=== PATIENT | female | born 1995 | race Caucasian/White ===

== ENCOUNTER 2020-10-16 20:56 | Observation (INO) | payer SELFPAY ==
--- NOTE | 2020-10-16 21:20 | PM.HP ---
Providers/Chief Complaint Admitting Physician: Elías Lainez MD Chief Complaint: Acute appendicitis History of Present Illness Paty Rivero is a 24 year old female who presented to [facility] in [place] with abdominal pain. She says the pain started about 3 days ago in the middle of the night. She has had pain ever since. This has been associated with some nausea and an episode of vomiting yesterday. There is no evidence of hematemesis. The patient also had some diarrhea yesterday but hasn't had any bowel movements today. She denies fevers and chills. A CAT scan done in [place] reportedly revealed changes consistent with acute appendicitis without evidence of rupture. The patient was transferred to [place] for further management. Review of Systems General: Reports: 10 or more systems reviewed and unremarkable except in HPI and below Const: Denies: fever(s) or chills GI: Reports: abdominal pain, nausea, vomiting, diarrhea and change in bowel habits Medications/Allergies Allergies Allergy/AdvReac Type Severity Reaction Status Date / Time No Known Allergies Allergy Unverified 10/16/20 21:19 PFSH Acute PFSH: Medical History (Updated 10/16/20 @ 21:21 by Elías Lainez MD) Depression Surgical History (Updated 10/16/20 @ 21:19 by Elías Lainez MD) S/P tube myringotomy Social History (Updated 10/16/20 @ 21:59 by Elías Lainez MD) Smoking and tobacco status: current every day smoker cigarettes Packs smoked per day: 0.75 Years cigarettes smoked: 10 Alcohol intake: current Alcohol use comment: Infrequently Physical Exam Narrative: EXAM NARRATIVE: The patient was encountered in the preoperative area. She doesn't appear to be in any acute distress. The pupils are equal. No neck masses are palpated. The chest is clear. The heart is regular. The abdomen is moderately to severely obese. Bowel sounds are present but may be somewhat hypoactive. The patient does have tenderness on the right side of her abdomen which is fairly impressive right above McBurney's point and at McBurney's point. Rovsing's sign is negative. No obvious masses are palpated. The extremities reveal no edema. Neurologically the patient appears to be grossly intact. Data Other Labs: Laboratory studies from [place]: White blood cell count 9.1, hemoglobin 14.6, platelets 367,000. Electrolytes are all grossly within normal limits. Glucose is elevated at 191. CT Abd/Pel: Radiologist's impression: CT abdomen/pelvis 10/16/2020 impression: CT findings consistent with acute separative appendicitis without rupture. A&P Assessment and plan (1) Acute appendicitis: The patient had a PACSgear disc sent with her but unfortunately, I cannot find a computer that will open the files (permissions seem to be restricted) and so I cannot look at her images. I told her I don't have any reason to doubt what the radiologist is seeing, but it is somewhat unusual that she has a normal white blood cell count with what appears to be a normal neutrophil differential (monocytes and eosinophils are elevated). I discussed appendicitis with the patient. Both medical and surgical methods of management were discussed. Surgical risks including bleeding, infection, internal organ injury, etc. were all gone over. The patient seems understand and is agreeable to proceeding with an appendectomy tonight. The patient last had some almonds at 7 AM this morning. She has been drinking some fluids up until around 4 PM this afternoon. We will make arrangements for a laparoscopic or possibly open appendectomy tonight. Status: Acute Attestations Medical Necessity Statement*: Based on my medical assessment, presenting symptoms and consideration of the scope of surgical therapy, I expect this patient will require treatment in the hospital for a period of time spanning less than 2 midnights, and is therefore being placed in observation status. 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
--- NOTE | 2020-10-16 21:36 | ANES.PREANE2 ---
Pre-Anesthetic Assessment Pre-Anesthetic Assessment: Preop Diagnosis: Appendicitis Proposed Procedure: Operation Date: 10/16/20 21:45 Proposed Procedures p Laparoscopic Appendectomy(Not Applicable) - Elías Lainez MD Familial anesthetic complications: None Was Beta Roland taken within 24 hours: N/A Was Clonidine taken within 24 hours: N/A Last intake: Almonds at 0700 this morning Social: Social History: Tobacco and No alcohol Exam: Pre-Anes Outpt Exam: alert, oriented x 3, clear to auscultation bilaterally and regular rate & rhythm Airway: Cervical ROM: WNL MP: 3 Dentition: Chipped and Other (missing) Additional comments: Poor dentition Metabolic: Metabolic: Morbid obesity Anesthetic Plan: ASA status: 2E Anesthesia: General Risk of > 500 ml blood loss (7ml/kg in children): No PFSH Anesthesia PFSH: Medical History (Updated 10/16/20 @ 21:21 by Elías Laniez MD) Depression Surgical History (Updated 10/16/20 @ 21:19 by Elías Lainez MD) S/P tube myringotomy Data Anesthesia Cardiac Studies: No Data to Display
[2020-10-16] MEDS: metroNIDAZOLE IV 500 MG/100 ML PREMIX 100 MG IV (22:05)
--- NOTE | 2020-10-16 22:59 | P.OP_ITS ---
Operative Report Date of procedure: October 16, 2020 Pre-op Diagnosis: Acute appendicitis. Post-op diagnosis: same Procedure Done: Laparoscopic appendectomy. Specimens removed/disposition: Appendix. Surgeon: Elías Lainez Anesthesia: General Estimated blood loss (mL): 5 Complications: None. Condition: stable Disposition: PACU Procedure: The patient was brought to the Operating Room and was placed in a supine position on the operating room table. General endotracheal anesthesia was induced. The abdomen was prepped and draped in a sterile fashion. A small vertical incision was carried out in the superior aspect of the umbilicus. Blunt dissection was carried out down to the fascia, which was grasped with a Holden clamp. A stay suture of 0 Vicryl was placed on either side of the midline and the midline fascia was incised. The underlying peritoneum was opened bluntly and the Natalie port was placed directly into the peritoneal cavity and was held in place with the inflatable balloon. The peritoneal cavity was insufflated with carbon dioxide. The laparoscope was used to inspect the peritoneal cavity. No gross abnormalities were initially noted. The patient had a considerable amount of intra-abdominal fat which precluded easy visualization of all of the organs. Two 5-millimeter ports were placed in the left lower quadrant under direct vision. The patient was tilted in a Trendelenburg position and slightly to the left side. A laparoscopic Abdias was used to elevate the cecum and the appendix was identified at its base. The appendix traveled laterally and posteriorly and was in a retrocecal location. The peritoneum laterally was freed up and the appendix was exposed. The appendix was freed using blunt dissection with some cautery and was then elevated. The mesoappendix was divided using cautery to maintain hemostasis at the base of the appendix. The base of the appendix appeared healthy and was divided using an endoscopic stapler. The appendix was removed from the peritoneal cavity after being placed in a laparoscopic bag. The right lower quadrant and pelvis were irrigated. The staple line on the cecum was identified and appeared to be in good condition. The Natalie port was removed from the umbilical site and the stay sutures of Vicryl were tied to each other at the umbilicus, closing the fascial defect so that it was airtight. A final ro und of irrigation was carried out in the right lower quadrant and the pelvis. No ongoing problems were seen. The remaining ports were removed from the abdominal wall as the pneumoperitoneum was evacuated. All skin incisions were closed using inverted interrupted sutures of 4-0 Vicryl. Benzoin and Steri-Strips were placed over the incisions and Band- Aids followed. The patient was taken to the Recovery Room in stable condition postoperatively.
[2020-10-16 23:16] VITALS: BP 158/91; PULSE 85; RESP 20; TEMP 36.6; O2SAT 90
[2020-10-16 23:20] VITALS: BP 156/90; PULSE 77; RESP 20; O2SAT 92
[2020-10-16 23:25] VITALS: BP 110/75; PULSE 73; RESP 20; O2SAT 90
[2020-10-16 23:30] VITALS: BP 135/75; PULSE 68; RESP 20; O2SAT 93
[2020-10-16] MEDS: ipratropium-albuterol 3 mL Neb INHALATION (23:34)
[2020-10-16 23:35] VITALS: BP 110/75; PULSE 63; RESP 18; TEMP 36.4; O2SAT 94
[2020-10-16] MEDS: ondansetron 2 mg/ML SDV 2 mL 4 MG IVP (23:37)
[2020-10-16 23:40] VITALS: BP 135/75; PULSE 63; RESP 18; TEMP 35.9; O2SAT 95
--- NOTE | 2020-10-16 23:40 | ANE.PACU2 ---
Inpatient post-anesthesia follow up: Airway intact: Yes Vital signs: Temperature 97.8 F Pulse Rate 74 Respiratory Rate 18 Blood Pressure 105/65 Pulse Oximetry 93 Oxygen Delivery Me thod Room Air Oxygen Flow Rate 8 Fraction of Inspir ed Oxygen Hydration adequate: Yes Nausea and vomiting: No Pain level: 2 Mental status: Baseline
[2020-10-17] VITALS (14 sets, daily range): BP systolic 104–115; BP diastolic 65–79; PULSE 63–88; RESP 16–20; TEMP 36.5–36.8; O2SAT 93–96; BMI 46.4
--- NOTE | 2020-10-17 00:04 | SUR.PHASEI ---
2344 PT AWAKE ALERT ABD SOFT PT REPORT TO FLOOR, PT TO FLOOR PER BED WITH PT BELONGINGS PHONE AND WALLET, AND CLOTHES. PT TAKING OCC ICE CHIPS 2350 PT UP AND WALKED TO BED WITH NO ASSIST. VSS.
[2020-10-17] MEDS: heparin 5,000 unit/mL INJ 1 mL 5000 UNIT SUBCUT (01:06)
[2020-10-17] MEDS: morphine 4 mg/mL SDV 1 mL IVP (01:06)
[2020-10-17] MEDS: piperacillin-tazobactam 3.375 GM in sodium chloride 0.9% (plus) 50 ML IV ×2 (01:07→08:39)
[2020-10-17] MEDS: lactated ringers 1,000 ML 100 ML IV (01:08)
[2020-10-17] MEDS: HYDROcodone-acetaminophen 5-325 mg Tablet PO (05:24)
[2020-10-17] MEDS: levalbuterol 0.63 mg/3 mL Neb INHALATION (07:18)
[2020-10-17] MEDS: nicotine 7 mg Patch 1 PATCH TRANSDERMA (08:39)
--- NOTE | 2020-10-17 10:27 | PC.CHAP ---
Pastoral Care Encounter/Spiritual Assessment Type of Contact [] Declined polystyrene bead molder visit [] Patient/Family/Request visit [] Outpatient visit [] Follow-up visit [] Physician referral [] Code/Alert [X] Routine visit [] Staff referral [] Actively dying [] Patient sleeping [] Family support [] [] Out of room [] Palliative care [] [] Receiving care in room [] Pre-surgical visit [] Trauma [] Long length of stay [] ICU visit [] Other: Relational/Emotional Strength [X] Patient feels connected with others/family/visitors/staff [] Distress [] Loneliness/isolation [] Abandonment Spirituality of Patient [X] Person of Lanette [] Attends Roman Catholic of their Lanette [] Believes in Prayer [] Reads Bible or Christianity materials [] There are Spiritual issues to be addressed Geospatial Specialist Interventions [X] Prayer [X] Active listening [X] Non-anxious presence [] Spiritual/emotional support [] Crisis/trauma care [] Spiritual counseling [] Bereavement support [] Provided bereavement packet [] Provided Bible/devotional materials [] Provided toy/stuffed animal, coloring book to patient or family member [] Provided Communion [] Anointing/[place] [] Salvation [X] Completed spiritual assessment [] Other: Impact on Illness or Injury [] Angry [] Fearful [] Anxious [] Often cries [] Exhaustion [] Unable to work [] Unable to attend hindu [] Unable to walk/stand [] Unable to read [] Unable to drive [] Unable to eat/drink [] Unable to sleep [] Unable to be with family [] Patient intubated [] Other: Summary PATIENT HAS LITTLE PAIN READY NTO GO HOME Time spent with patient 120 MIN
--- NOTE | 2020-10-17 10:32 | P.DS_ITS ---
Discharge Providers Date of Admission: 10/16/20 20:56 Date of Discharge: October 17, 2020 Attending Provider at Admission: Elías Lainez MD Attending Provider at Discharge: Elías Lainez MD Diagnoses at Discharge Discharge Diagnosis (1) Acute appendicitis: Status: Acute Reason for Visit Reason for Visit: Acute appendicitis Hospital Course Hospital Course This is a 24-year-old white female who presented to a local emergency room with a 2 to 3-day history of abdominal pain. A CAT scan revealed changes consistent with acute appendicitis. She was transferred to [place] for surgical management. She was counseled regarding an appendectomy and elected to proceed. She underwent a laparoscopic appendectomy the same day. By the following morning her vital signs were stable and she was feeling well. She was anxious to go home. She was instructed with respect to wound care, activity limitations, diet, etc. Arrangements will be made for her to follow up with me in the office as an outpatient. Physical Exam Narrative: EXAM NARRATIVE: The patient is afebrile. Vital signs are stable. All of the surgical wounds look good. Discharge Data Data Completed and Pending: Pending at discharge Category Date Time Status ES surgery / GI i mages Routine Exams 10/16/20 21:41 Ordered Pathology: Surgic al [PTH] Routine Pth 10/16/20 23:00 Ordered Vitals: Last Vital Signs Temp 97.8 F 10/17/20 07:45 Pulse 74 10/17/20 07:45 Resp 18 10/17/20 07:45 BP 105/65 10/17/20 07:45 Pulse Ox 93 10/17/20 07:45 Discharge Plan Discharge Patient Disposition: Home Condition: Stable Prescriptions: New hydrocodone-acetaminophen 5-325 mg tablet 1 - 2 tab PO Q5H PRN (Reason: pain) Qty: 30 RF: 0 Discharge Orders: Discharge Order (Routine); Ordered 10/17/20 Ordered By: Elías Lainez Referrals: Elías Lainez MD [Physician] - 2 weeks (Nursing: Please call Dr. Lainez's office ([phone]) and make an appointment for the patient to be seen in 2 - 3 weeks.) Discharge Diet: Advance as tolerated Discharge Activity: Limit activity as instructed Patient Instructions: Opioid Safety Activity Restrictions/Additional Instructions: 1. Discharge to home today. 2. Appointment to see Dr. Lainez in 10-14 days. 3. Bandages / bandaids off later today, leave Steri-Strip(s) on, may shower. 4. [place] 5/325 1-2 tablets by mouth every 5 hours as needed for pain. #30, no refills. No lifting over 20 pounds, no repetitive bending or twisting, no strenuous pushing / pulling or other heavy activity. Ambulate regularly. May go up and down steps if needed. Discharge Attestations Time Spent in Discharge Care*: less than 30 min Quality Metrics Clinical Quality Measures During this hospital stay, did patient experience: None Coding Level of Care Code Acute g DC note Diagnoses Acute appendicitis K35.80
--- NOTE | 2020-10-18 12:07 | PC.RESP ---
SMOKING CESSATION INFORMATION SENT TO PATIENT.
== END 2020-10-17 11:15 | disposition home or self-care (01) ==
PROVIDERS: Admitting Provider Surgery; Visit Provider Surgery
PROC: 0DTJ4ZZ Resection of Appendix, Percutaneous Endoscopic Approach (ICD-10-PCS; CPT 44970; principal; 2020-10-16 21:45)
DX: K35.80 Unspecified acute appendicitis (principal); E66.01 Morbid (severe) obesity due to excess calories; Z68.42 Body mass index [BMI] 45.0-49.9, adult; F32.9 Major depressive disorder, single episode, unspecified
CPT/HCPCS: 44970; 88304; 94640; 96372; G0378; G0379; J0690; J1644; J1885; J2270; J2405; J2543; J2704; J2710; J3010; J3490; J3535; J7614; S0030

== ENCOUNTER → 2020-11-13 10:45 | Outpatient (BNVA) | payer SELFPAY | PROVIDERS: PCP Registered Nurse; Visit Provider Registered Nurse | DX: E11.9 Type 2 diabetes mellitus without complications (principal) | CPT/HCPCS: 36416; 80053; 80061; 81000; 81025; 82962; 83036; 85025 ==

== ENCOUNTER 2021-05-15 11:39 | Emergency (ER) | payer SELFPAY ==
[2021-05-15 13:18] VITALS: BP 143/90; PULSE 89; RESP 18; TEMP 36.8; O2SAT 97; BMI 42.3
--- NOTE | 2021-05-15 13:25 | ED_ITS ---
HPI - Extremity Problem General: Chief complaint: Extremity Problem,Nontraumatic Stated complaint: Frostbite on feet, pain with fevor Time Seen by Provider: 05/15/21 13:30 History of Present Illness: HPI Narrative: Patient states he was diagnosed [facility] [place] that she had first-degree frostbite to her toes. She says her toes are still red. That they are painful. Here for reevaluation. Patient says he needs a note to be off work this week because it hurts to put her boots on. Associated symptoms: Deny chest pain, fever(s) or rash Review of Systems Narrative: Patient said she went out to take care of the animals and she was in the snow and sandals. Less than 15 minutes. Const: Denies: fever(s), chills or body aches Eyes: Denies: change in vision or blurry vision ENMT: Denies: throat pain or nasal congestion Card: Denies: chest pain or dyspnea on exertion Resp: Denies: dyspnea, productive cough or non-productive cough GI: Denies: abdominal pain, nausea or vomiting Musc: Denies: extremity pain Skin/Breast: Reports: erythema (Varies, to her toes. Was [facility] at [facility] earlier in the week.); Denies: rash Neuro: Denies: headache(s) Psych: Denies: anxiety or depression Wei/Lymph: Denies: easy bruising [facility] ED PFSH: Medical History Depression Diabetes mellitus Surgical History S/P tube myringotomy Social History Alcohol intake: current Adopted: No Caregiver/support person: No Lives independently: No Household members: significant other service: No Current occupational status: employed Sexually active: Yes Current gender identity: Female Physical Exam Const: COMMON NORMALS: no acute distress GENERAL APPEARANCE: cooperative Resp: COMMON NORMALS: normal respiratory effort Extremity: COMMON NORMALS: normal to inspection Skin: OTHER: She has small areas less than pea-sized of various sizes and borders of redness to her toes with very minimal swelling. There is no discoloration there is no fever to the toes slightly tender to touch has good movement of toes no evidence of gangrene or severe circulation compromise. No evidence of infection. Course Vital Signs: Vital signs: Vital Signs Temperature 98.7 F 05/15/21 13:49 Pulse Rate 94 05/15/21 13:49 Respiratory Rate 16 05/15/21 13:49 Blood Pressure 115/73 05/15/21 13:49 Pulse Oximetry 97 05/15/21 13:49 Discharge Plan Discharge Patient Disposition: Home Clinical Impression: Frostbite Qualifiers: Encounter type: initial encounter Qualified Code(s): T33.90XA - Superficial frostbite of unspecified sites, initial encounter Condition: Stable Prescriptions: New Bactrim DS 800-160 mg tablet 1 tab PO BID 7 Days Qty: 14 RF: 0 No Action metformin 500 mg tablet 500 mg PO BID Qty: 60 RF: 0 (DME) blood-glucose meter [Accu-Chek Guide Glucose Meter] Misc See Rx Instructions .Route Qty: 1 RF: 0 (DME) lancets [1st Tier Unilet ComforTouch] 28 gauge misc See Rx Instructions .Route Qty: 100 RF: 0 (DME) Accu-Chek Guide test strips Strip See Rx Instructions .Route Qty: 100 RF: 0 Jardiance 10 mg tablet 10 mg PO DAILY Qty: 90 RF: 0 Discharge Orders: Discharge ED (Routine); Ordered 05/15/21 Ordered By: Hamzah Ley Referrals: Cat Bejarano, WEAVING MACHINE OPERATOR [Primary Care Provider] - Discharge Diet: Usual diet Discharge Activity: Increase activity as tolerated Activity Restrictions/Additional Instructions: Follow-up with medical provider as directed. Take medications as prescribed. Return to the ER or your medical provider if condition worsens. Please read and understand discharge instructions. If any questions ask please. Keep appointment you have on Thursday with your primary care provider. Keep feet elevated. Make sure you keep them clean with soap and water. Stand Alone Forms: Work/School Release Coding Level of Care Code ED Glass Robot Operator for Yunier Reed
[2021-05-15 13:43] VITALS: BP 115/73; PULSE 93; RESP 16; TEMP 37.1; O2SAT 97
[2021-05-15 13:49] VITALS: BP 115/73; PULSE 94; RESP 16; TEMP 37.1; O2SAT 97
== END 2021-05-15 14:03 | disposition home or self-care (01) ==
PROVIDERS: Emergency Provider Nurse Practitioner Family; PCP Registered Nurse
DX: T33.839A Superficial frostbite of unspecified toe(s), initial encounter (principal); X31.XXXA Exposure to excessive natural cold, initial encounter; Y93.29 Activity, other involving ice and snow; E11.9 Type 2 diabetes mellitus without complications; Z79.84 Long term (current) use of oral hypoglycemic drugs
CPT/HCPCS: 99282

== ENCOUNTER → 2021-05-17 11:33 | Outpatient (BNVA) | payer SELFPAY | PROVIDERS: PCP Registered Nurse; Visit Provider Registered Nurse | DX: E11.9 Type 2 diabetes mellitus without complications (principal) | CPT/HCPCS: 80053; 81000; 83036 ==

== ENCOUNTER 2021-06-29 13:04 | Emergency (ER) | payer SELFPAY ==
[2021-06-29 13:21] VITALS: BP 145/88; PULSE 82; RESP 16; TEMP 36.8; O2SAT 98; BMI 42.8
--- NOTE | 2021-06-29 13:31 | ED_ITS ---
HPI - Headache General: Chief Complaint: Headache Stated Complaint: Tremors, memory problems, speech issues Time Seen by Provider: 06/29/21 13:28 Source: patient Mode of arrival: ambulatory Limitations: no limitations History of Present Illness: 25-year-old female presents emergency room complaining of headache for the last 3 days. She is complaining of some confusion at home but when she came to the emergency room she was awake and alert x4 she was able to answer questions give a good history. She has no other focal neurologic deficits no change in vision speech or swallowing. No difficulty with gait or balance. She complains of bilateral frontal temporal headache pain. She was seen at another facility and started on sumatriptan for rescue medicine she is use that several times has not really had any relief of her pain she also tried Tylenol and ibuprofen. No recent head trauma. MD elicited complaint: headache Onset (ago): day(s) Location: right, left, frontal and temporal Quality & Timing: throbbing Exacerbating factors: light and noise Relieving factors: nothing Associated symptoms: Deny chest pain, confusion, cough, diaphoresis, eye pain, eye redness, fever(s), lightheadedness, loss of vision, malaise, nausea, neck stiffness, numbness, paresthesias, photophobia, pre-syncope, rash, seizures, short of breath, syncope, vomiting or weakness Treatments prior to arrival: none Review of Systems Const: Denies: fever(s), malaise or diaphoresis ENMT: Denies: throat pain, ear or mastoid pain, nasal discharge or nasal congestion Card: Denies: chest pain, lightheadedness, syncope or pre-syncope Resp: Denies: dyspnea, productive cough or non-productive cough GI: Denies: nausea or vomiting : Denies: flank pain, difficulty voiding, dysuria, urinary frequency or urinary urgency Skin/Breast: Denies: rash Neuro: Denies: confusion PFSH ED PFSH: Medical History Depression Diabetes mellitus Surgical History S/P tube myringotomy Social History Alcohol intake: current Adopted: No Caregiver/support person: No Lives independently: No Household members: significant other service: No Current occupational status: employed Sexually active: Yes Current gender identity: Female Physical Exam Const: GENERAL APPEARANCE: cooperative and comfortable ORIENTATION/CONSCIOUSNESS: Yes awake, Yes oriented to person, Yes oriented to place and Yes oriented to time HENMT: COMMON NORMALS: normocephalic, atraumatic, hearing grossly normal bilaterally, external ears normal, EAC's normal, TM's normal bilaterally and Normal nasal mucous membranes and turbinates present HEAD & SCALP: normocephalic and atraumatic NOSE: Normal nasal mucous membranes and turbinates present EXTERNAL EAR: Yes external ears normal 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 CANAL: EAC's normal TYMPANIC MEMBRANE: TM's normal bilaterally Eye: COMMON NORMALS: Equal, round and reactive pupils present, EOMs intact bilaterally, conjunctivae normal and no scleral icterus CONJUNCTIVA: Yes conjunctivae normal PUPIL: Yes Equal, round and reactive pupils present DIRECT OPHTHALMOSCOPY: No photophobia Neck/C-Spine: COMMON NORMALS: full ROM, no lymphadenopathy, supple and no JVD Lymph: LYMPHATIC: no lymphadenopathy noted and no lymphedema noted Resp: COMMON NORMALS: normal respiratory effort, No retractions, No use of accessory muscles and clear to auscultation bilaterally AUSCULTATION: clear to auscultation bilaterally Cardio: COMMON NORMALS: no JVD, regular rate, regular rhythm and No murmurs present (Cardio) RATE: regular rate RHYTHM: regular rhythm GI: COMMON NORMALS: Soft to palpation and No hepatosplenomegaly present AUSCULTATION: Yes normoactive bowel sounds PALPATION: Yes Soft to palpation, No Tenderness to palpation present (GI), No Guarding due to palpation present (GI) and Yes No hepatosplenomegaly present Extremity: COMMON NORMALS: normal to inspection, capillary refill normal, no clubbing, cyanosis or edema, no calf tenderness and no pedal edema Neuro: SENSORIUM/ORIENTATION: Yes oriented to person, Yes oriented to place and Yes oriented to time OTHER: No focal neurologic deficits Skin: COMMON NORMALS: no rashes or lesions noted GENERAL SKIN EXAM: no rashes or lesions noted Course Vital Signs: Vital signs: Vital Signs Temperature 98.3 F 06/29/21 13:21 Pulse Rate 75 06/29/21 16:42 Respiratory Rate 18 06/29/21 16:42 Blood Pressure 147/82 06/29/21 16:42 Pulse Oximetry 99 06/29/21 16:42 MDM - Headache Medical Decision Making Improved with ketorolac valproic acid and Phenergan and fluids. Will discharge home on Topamax 50 mg nightly complete follow-up with neurology as scheduled. Medical Records I reviewed the patient's medical records. Lab Data I reviewed the patient's lab results. : 06/29/21 14:52 06/29/21 14:52 Laboratory Results WBC 11.3 10^3/uL (4.0-10.0) H 06/29/21 14:52 RBC 5.21 10^6/uL (4.1-5.3) 06/29/21 14:52 Hgb 13.6 g/dL (11.5-15.3) 06/29/21 14:52 Hct 42.3 % (37.0-47.0) 06/29/21 14:52 MCV 81.2 fl (81-99) 06/29/21 14:52 MCH 26.1 pg (28.0-34.0) L 06/29/21 14:52 MCHC 32.2 g/dL (30.0-36.0) 06/29/21 14:52 RDW 16.4 % (12.1-15.1) H 06/29/21 14:52 Plt Count 429 10^3/cmm (130-400) H 06/29/21 14:52 MPV 9.9 fL (7.4-10.4) 06/29/21 14:52 Neut % (Auto) 58.8 % 06/29/21 14:52 Lymph % (Auto) 29.3 % 06/29/21 14:52 [place] % (Auto) 6.1 % 06/29/21 14:52 Eos % (Auto) 4.8 % 06/29/21 14:52 Baso % (Auto) 0.6 % 06/29/21 14:52 Neut # (Auto) 6.64 10^3/uL (1.8-7.7) 06/29/21 14:52 Lymph # (Auto) 3.3 10^3/uL (0.8-4.8) 06/29/21 14:52 [place] # (Auto) 0.7 10^3/uL (0.2-0.9) 06/29/21 14:52 Eos # (Auto) 0.5 10^3/uL (0.0-0.8) 06/29/21 14:52 Baso # (Auto) 0.1 10^3/uL (0.0-0.1) 06/29/21 14:52 Nucleated RBC % (auto) 0 % 06/29/21 14:52 Nucleated RBCs # 0.0 /100WBC 06/29/21 14:52 Sodium 139 mmol/L (136-145) 06/29/21 14:52 Potassium 4.1 mmol/L (3.5-5.1) 06/29/21 14:52 Chloride 103 mmol/L (98-107) 06/29/21 14:52 Carbon Dioxide 23 mmol/L (22-29) 06/29/21 14:52 Anion Gap 17.1 (5-19) 06/29/21 14:52 BUN 9 mg/dL (6-20) 06/29/21 14:52 Creatinine 0.6 mg/dL (0.5-0.9) 06/29/21 14:52 GFR Calculation 122.8 mL/min (90-130) 06/29/21 14:52 Glucose 91 mg/dL (65-115) 06/29/21 14:52 Calculated Osmolality 286 mOsm/kg (285-295) 06/29/21 14:52 Calcium 9.4 mg/dL (8.5-10.5) 06/29/21 14:52 Total Bilirubin 0.2 mg/dL (0.15-1.2) 06/29/21 14:52 AST 18 U/L (0-32) 06/29/21 14:52 ALT 22 U/L (0-33) 06/29/21 14:52 Alkaline Phosphatase 72 IU/L (35-105) 06/29/21 14:52 Total Protein 7.0 g/dL (6.6-8.7) 06/29/21 14:52 Albumin 4.2 g/dL (3.5-5.2) 06/29/21 14:52 Globulin 2.8 g/dL (1.3-4.6) 06/29/21 14:52 Discharge Plan Discharge Patient Disposition: Home Clinical Impression: Headache Condition: Stable Prescriptions: New Topamax 50 mg tablet 50 mg PO DAILY Qty: 30 0RF No Action metformin 1,000 mg tablet 1,000 mg PO BID 90 Days Qty: 180 0RF sumatriptan succinate 100 mg tablet 100 mg PO . DIRECTED PRN (Reason: Migraine Headache) 0RF Discharge Orders: Discharge ED (Routine); Ordered 06/29/21 Ordered By: Gokul Escamilla Referrals: Cat Bejarano, SENIOR IT ENGINEER [Primary Care Provider] - Discharge Diet: Usual diet Discharge Activity: Increase activity as tolerated Patient Instructions: Opioid Safety Activity Restrictions/Additional Instructions: Follow-up with neurology as previously scheduled. Coding Level of Care Code ED Coal Hauler for Yunier Fwd Exam Comprehensive
[2021-06-29] MEDS: promethazine 25 mg/mL SDV 1 mL IM (14:31)
[2021-06-29] MEDS: lactated ringers 1,000 ML 999 ML IV (14:48)
[2021-06-29] MEDS: valproic acid inj 500 MG in sodium chloride 0.9% 50 ML 55 MG IV (14:48)
[2021-06-29] MEDS: ketorolac 30 mg/mL INJ IVP (14:48)
[2021-06-29 15:13] LABS: Basophils # 0.1 10^3/uL (0.0-0.1); Basophils % 0.6 %; Eosinophils # 0.5 10^3/uL (0.0-0.8); Eosinophils % 4.8 %; Hematocrit 42.3 % (37.0-47.0); Hemoglobin 13.6 g/dL (11.5-15.3); Lymphocytes # 3.3 10^3/uL (0.8-4.8); Lymphocytes % 29.3 %; Mean Corpuscular HGB Conc 32.2 g/dL (30.0-36.0); Mean Corpuscular Hemoglobin 26.1 pg (28.0-34.0); Mean Corpuscular Volume 81.2 fl (81-99); Mean Platelet Volume 9.9 fL (7.4-10.4); Monocytes # 0.7 10^3/uL (0.2-0.9); Monocytes % 6.1 %; Neutrophils # 6.64 10^3/uL (1.8-7.7); Neutrophils % 58.8 %; Nucleated Red Blood Cells % 0 %; Platelet Count 429 10^3/cmm (130-400); Red Blood Count 5.21 10^6/uL (4.1-5.3); Red Cell Distribution Width 16.4 % (12.1-15.1); White Blood Count 11.3 10^3/uL (4.0-10.0)
[2021-06-29 15:28] LABS: Alanine Aminotransferase 22 U/L (0-33); Albumin Level 4.2 g/dL (3.5-5.2); Alkaline Phosphatase 72 IU/L (35-105); Aspartate Amino Transferase 18 U/L (0-32); Blood Urea Nitrogen 9 mg/dL (6-20); Calcium 9.4 mg/dL (8.5-10.5); Carbon Dioxide 23 mmol/L (22-29); Chloride 103 mmol/L (98-107); Globulin 2.8 g/dL (1.3-4.6); Glomerular Filtration Rate 122.8 mL/min (90-130); Glucose 91 mg/dL (65-115); Osmolality Calculated 286 mOsm/kg (285-295); Sodium 139 mmol/L (136-145); Total Bilirubin 0.2 mg/dL (0.15-1.2)
[2021-06-29 15:56] LABS: Anion Gap 17.1 (5-19); Potassium 4.1 mmol/L (3.5-5.1)
[2021-06-29 16:42] VITALS: BP 147/82; PULSE 75; RESP 18; O2SAT 99
== END 2021-06-29 16:43 | disposition home or self-care (01) ==
PROVIDERS: Emergency Provider Family Medicine; PCP Registered Nurse
DX: R51.9 Headache, unspecified (principal); Z79.84 Long term (current) use of oral hypoglycemic drugs; E11.9 Type 2 diabetes mellitus without complications
CPT/HCPCS: 80053; 85025; 96365; 96366; 96372; 96375; 99284; J1885; J2550

== ENCOUNTER → 2021-08-26 14:52 | Outpatient (BNVA) | payer SELFPAY | PROVIDERS: PCP Registered Nurse; Visit Provider Registered Nurse | DX: E11.9 Type 2 diabetes mellitus without complications (principal) | CPT/HCPCS: 83036 ==

== ENCOUNTER → 2021-08-27 08:08 | Outpatient (BNVA) | payer SELFPAY | PROVIDERS: PCP Registered Nurse; Visit Provider Registered Nurse | DX: G40.909 Epilepsy, unspecified, not intractable, without status epilepticus (principal); Z01.89 Encounter for other specified special examinations | CPT/HCPCS: 80177 ==

== ENCOUNTER 2021-08-28 12:07 | Emergency (ER) | payer SELFPAY ==
[2021-08-28 12:12] VITALS: BP 145/88; PULSE 87; RESP 18; TEMP 36.9; O2SAT 99
--- NOTE | 2021-08-28 12:58 | ED_ITS ---
HPI - Seizure General: Chief Complaint: Seizure Stated Complaint: Blurry vison, Seizures Time Seen by Provider: 08/28/21 12:58 History of Present Illness: HPI Narrative: Ms. Ramos is a 25-year-old lady with history of diabetes on oral agents who presents to the emergency department due to seizures. She reports a history of migraines which progressively got worse and began having seizure-like episodes on 18 August of this year. She denies history of seizures or specific provoking events/trauma. She endorses initially episodes of shakiness correlating with headaches however now has seizures without specific prodrome. These do vary in morphology, she does not recall the events and does not have an aura. Family reports that some of the episodes she stares off into space and has twitching followed by confusion and return to normal and some other events are generalized tonic-clonic shaking with loss of muscle tone, fall, and primary involvement in bilateral upper extremities. She does not have tongue biting or loss of continence but does have postictal. Overall frequency is increased. When present symptom intensity is severe. She was seen in [place] and reportedly had head imaging which was normal and initiated on Keppra 1000 mg twi ce daily which she has been taking as prescribed. Denies other changes in health or known specific provoking factors. No other specific changes in health, exacerbating, or alleviating factors identified. Onset (ago): week(s) Description of Episode: loss of consciousness, tonic-clonic movement and post- event confusion Possible Precipitating Event: none Review of Systems General: Reports: 10 or more systems reviewed and unremarkable except in HPI and below PFSH ED PFSH: Medical History Depression Diabetes mellitus Surgical History S/P tube myringotomy Social History Smoking and tobacco status: current every day smoker (one pack a day) cigarettes Packs smoked per day: 0.75 Years cigarettes smoked: 10 Alcohol intake: current Adopted: No Caregiver/support person: No Lives independently: No Household members: significant other service: No Current occupational status: employed Sexually active: Yes Current gender identity: Female Female Reproductive History: Date of last menstrual period: 08/23/21 Physical Exam Const: COMMON NORMALS: alert GENERAL APPEARANCE: cooperative and well developed HENMT: COMMON NORMALS: normocephalic and atraumatic HEAD & SCALP: normo cephalic and atraumatic Eye: COMMON NORMALS: conjunctivae normal CONJUNCTIVA: Yes conjunctivae normal SCLERA: sclerae normal Neck/C-Spine: COMMON NORMALS: supple GENERAL: Yes trachea midline Resp: COMMON NORMALS: normal respiratory effort EFFORT & INSPECTION: Yes able to speak in complete sentences Cardio: COMMON NORMALS: regular rate and regular rhythm RATE: regular rate RHYTHM: regular rhythm GI: COMMON NORMALS: Soft to palpation PALPATION: Yes Soft to palpation and No Tenderness to palpation present (GI) PERCUSSION: normal to percussion Extremity: GENERAL: Yes normal exam except as noted and No edema Neuro: COMMON NORMALS: moves all extremities SENSORIUM/ORIENTATION: Yes alert and No Orientation impaired Psych: COMMON NORMALS: mental status grossly normal and Normal thought process present THOUGHT PROCESS: Normal thought process present Course ED course: - Patient was seen and evaluated by me at bedside - Patient placed on cardiac monitors, IV access obtained - Initial evaluation notable for exam as above - Labs personally interpreted by me - Labs notable for no obvious hematologic or metabolic abnormality to explain patient's symptoms. Keppra level pending. - Discussed with neurology, plan to increase patient's dose to 1500 twice daily. Patient has neurology follow-up at the end of the month and order will be placed for outpatient EEG. - Upon serial reexamination after treatment the patient was similar - Based on patient history, evaluation, and testing as interpreted the most likely cause of the patient's condition is seizure - The results of ED evaluation were discussed with the patient including prescriptions and/or symptomatic cares (if applicable) including appropriate and responsible use, followup plan, and return precautions. The patient verbalized understanding and felt safe for discharge. - Patient discharged in satisfactory condition. Note: Click bubbles or prepopulated garner in note writing are used for assistance with data collection and billing and are inherently more limited than narrative and other text portions of this note. Please use narrative for additional clinical history and defer to narrative/free test for any case of contradictory information. If information appears in only free text or click bubble it should be considered present or absent as reported. Please contact note underwriter solicitation director for clarifications of clinical information or contradictory information. MDM is a brief summary, contradictory or erroneous seeming information should be clarified and full note should be reviewed. Vital Signs: Vital signs: Vital Signs Temperature 98.5 F 08/28/21 12:12 Pulse Rate 76 08/28/21 15:34 Respiratory Rate 18 08/28/21 13:20 Blood Pressure 121/84 08/28/21 15:34 Pulse Oximetry 95 08/28/21 15:34 MDM - Seizure MDM Narrative Medical decision making narrative: 25-year-old lady with history of variable morphology seizures presenting with seizure. No clear trigger identified on laboratory studies. Plan to increase Keppra to 1500 mg twice daily. Follow-up outpatient with EEG and appointment with neurology. Discussed seizure precautions. Medical Records Attestation: I reviewed the patient's medical records. Lab Data Attestation: I reviewed the patient's lab results. Result diagrams: 08/28/21 14:34 08/28/21 14:34 Labs: Laboratory Results WBC 7.9 10^3/uL (4.0-10.0) 08/28/21 14:34 RBC 5.35 10^6/uL (4.1-5.3) H 08/28/21 14:34 Hgb 14.4 g/dL (11.5-15.3) 08/28/21 14:34 Hct 44.6 % (37.0-47.0) 08/28/21 14:34 MCV 83.4 fl (81-99) 08/28/21 14:34 MCH 26.9 pg (28.0-34.0) L 08/28/21 14:34 MCHC 32.3 g/dL (30.0-36.0) 08/28/21 14:34 RDW 15.9 % (12.1-15.1) H 08/28/21 14:34 Plt Count 360 10^3/cmm (130-400) 08/28/21 14:34 MPV 9.2 fL (7.4-10.4) 08/28/21 14:34 Neut % (Auto) 42.7 % 08/28/21 14:34 Lymph % (Auto) 42.9 % 08/28/21 14:34 [place] % (Auto) 4.9 % 08/28/21 14:34 Eos % (Auto) 8.3 % 08/28/21 14:34 Baso % (Auto) 0.9 % 08/28/21 14:34 Neut # (Auto) 3.38 10^3/uL (1.8-7.7) 08/28/21 14:34 Lymph # (Auto) 3.4 10^3/uL (0.8-4.8) 08/28/21 14:34 [place] # (Auto) 0.4 10^3/uL (0.2-0.9) 08/28/21 14:34 Eos # (Auto) 0.7 10^3/uL (0.0-0.8) 08/28/21 14:34 Baso # (Auto) 0.1 10^3/uL (0.0-0.1) 08/28/21 14:34 Nucleated RBC % (auto) 0 % 08/28/21 14:34 Nucleated RBCs # 0.0 /100WBC 08/28/21 14:34 Sodium 136 mmol/L (136-145) 08/28/21 14:34 Potassium 3.6 mmol/L (3.5-5.1) 08/28/21 14:34 Chloride 103 mmol/L (98-107) 08/28/21 14:34 Carbon Dioxide 19 mmol/L (22-29) L 08/28/21 14:34 Anion Gap 17.6 (5-19) 08/28/21 14:34 BUN 7 mg/dL (6-20) 08/28/21 14:34 Creatinine 0.6 mg/dL (0.5-0.9) 08/28/21 14:34 GFR Calculation 122.8 mL/min (90-130) 08/28/21 14:34 Glucose 113 mg/dL (65-115) 08/28/21 14:34 Calculated Osmolality 281 mOsm/kg (285-295) L 08/28/21 14:34 Calcium 8.8 mg/dL (8.5-10.5) 08/28/21 14:34 Total Bilirubin 0.2 mg/dL (0.15-1.2) 08/28/21 14:34 AST 18 U/L (0-32) 08/28/21 14:34 ALT 32 U/L (0-33) 08/28/21 14:34 Alkaline Phosphatase 97 IU/L (35-105) 08/28/21 14:34 Creatine Kinase 68 U/L (26-192) 08/28/21 14:34 Total Protein 6.5 g/dL (6.6-8.7) L 08/28/21 14:34 Albumin 4.4 g/dL (3.5-5.2) 08/28/21 14:34 Globulin 2.1 g/dL (1.3-4.6) 08/28/21 14:34 HCG, Qual Negative (Negative) 08/28/21 14:30 Urine Color Straw (Yellow) 08/28/21 14:30 Urine Appearance Clear (CLEAR) 08/28/21 14:30 Urine pH 5 (5-7) 08/28/21 14:30 Ur Specific [place] 1.000 (1.005-1.030) L 08/28/21 14:30 Urine Protein Neg (Negative) 08/28/21 14:30 Urine Glucose (UA) Norm (Normal) 08/28/21 14:30 Urine Ketones Negative (Negative) 08/28/21 14:30 Urine Blood 2+ (Negative) H 08/28/21 14:30 Urine Nitrate Negative (Negative) 08/28/21 14:30 Urine Bilirubin Neg (Negative) 08/28/21 14:30 Urine Urobilinogen Norm mg/dL (Negative) 08/28/21 14:30 Ur Leukocyte Esterase Negative (Negative) 08/28/21 14:30 Urine RBC 0-4 /hpf (0-2) H 08/28/21 14:30 Urine WBC 0-4 /hpf (0-5) H 08/28/21 14:30 Ur Squamous Epith Cells 0-4 /hpf (0-5) H 08/28/21 14:30 Amorphous Sediment Not Reportable 08/28/21 14:30 Urine Bacteria None /hpf (NONE) 08/28/21 14:30 Levetiracetam 23.3 mcg/mL 08/28/21 14:34 Discharge Plan Discharge Patient Disposition: Home Clinical Impression: Generalized seizure Condition: Stable Prescriptions: New Keppra 500 mg tablet 1,500 mg PO BID Qty: 90 0RF No Action levetiracetam [Keppra] 1,000 mg tablet 1,000 mg PO BID 0RF metformin 1,000 mg tablet See Rx Instructions .ROUTE .COMPLEX Qty: 180 0RF Dose Instruction: Take 1 tablet by mouth twice daily for 90 days Rx Instructions: Take 1 tablet by mouth twice daily for 90 days sumatriptan succinate 100 mg tablet 100 mg PO . DIRECTED PRN (Reason: Migraine Headache) 0RF Topamax 50 mg tablet 50 mg PO DAILY Qty: 30 0RF Discharge Orders: Discharge ED (Routine); Ordered 08/28/21 Ordered By: Earl Nunes Referrals: Cat Bejarano FNP [Primary Care Provider] - Discharge Diet: Usual diet Discharge Activity: Limit activity as instructed Patient Instructions: Epilepsy (ED) Activity Restrictions/Additional Instructions: Thank you for visiting the emergency department. You were seen and evaluated for seizures increasing frequency and visual disturbance. The exact cause of your symptoms is unclear though may be related to underlying seizure disorder. No clear triggering event is identified on laboratory studies. After discussion with neurology, I will increase your Keppra to 1500 mg twice daily. I will write a prescription for 500 mg tablets so you may use the rest of your 1000 mg tablets. If you are using this combination it is one 1000 mg tablet and one 500 mg tablet twice daily if you are using just the 500 mg tablets it is three 500 mg tablets twice daily. I will also message case management for scheduling an outpatient EEG. Please ensure that you follow-up with neurology as scheduled. Return to the emergency department for worsening symptoms, any new focal neurologic symptoms, or anything else that you are concerned about and feel needs emergency department evaluation. Please follow all safety seizure precautions as discussed. Coding Level of Care Code ED Faculty Member for Yunier Reed Exam Comprehensive
[2021-08-28 13:20] VITALS: BP 143/100; PULSE 86; RESP 18; O2SAT 97
[2021-08-28 14:40] LABS: Basophils # 0.1 10^3/uL (0.0-0.1); Basophils % 0.9 %; Eosinophils # 0.7 10^3/uL (0.0-0.8); Eosinophils % 8.3 %; Hematocrit 44.6 % (37.0-47.0); Hemoglobin 14.4 g/dL (11.5-15.3); Lymphocytes # 3.4 10^3/uL (0.8-4.8); Lymphocytes % 42.9 %; Mean Corpuscular HGB Conc 32.3 g/dL (30.0-36.0); Mean Corpuscular Hemoglobin 26.9 pg (28.0-34.0); Mean Corpuscular Volume 83.4 fl (81-99); Mean Platelet Volume 9.2 fL (7.4-10.4); Monocytes # 0.4 10^3/uL (0.2-0.9); Monocytes % 4.9 %; Neutrophils # 3.38 10^3/uL (1.8-7.7); Neutrophils % 42.7 %; Nucleated Red Blood Cells % 0 %; Platelet Count 360 10^3/cmm (130-400); Red Blood Count 5.35 10^6/uL (4.1-5.3); Red Cell Distribution Width 15.9 % (12.1-15.1); White Blood Count 7.9 10^3/uL (4.0-10.0)
[2021-08-28 14:45] LABS: HCG Qualitative Urine. Negative (Negative)
[2021-08-28 14:53] LABS: Bilirubin Urine Neg (Negative); Blood Urine 2+ (Negative); Glucose Urine UA Norm (Normal); Ketones Urine Negative (Negative); Leukocyte Esterase Urine Negative (Negative); Nitrate Urine Negative (Negative); Protein Urine Neg (Negative); Urine Appearance Clear (CLEAR); Urine Color Straw (Yellow); Urobilinogen Urine Norm (Negative); pH Urine 5 (5-7)
[2021-08-28 14:54] LABS: Add Urine Culture? No; Add Urine Microscopic? YES; RBC Urine 0-4 /hpf (0-2); Squamous Epithelial Cell Urine 0-4 /hpf (0-5); WBC Urine 0-4 /hpf (0-5)
[2021-08-28 14:58] LABS: Alanine Aminotransferase 32 U/L (0-33); Albumin Level 4.4 g/dL (3.5-5.2); Alkaline Phosphatase 97 IU/L (35-105); Anion Gap 17.6 (5-19); Aspartate Amino Transferase 18 U/L (0-32); Blood Urea Nitrogen 7 mg/dL (6-20); Calcium 8.8 mg/dL (8.5-10.5); Carbon Dioxide 19 mmol/L (22-29); Chloride 103 mmol/L (98-107); Globulin 2.1 g/dL (1.3-4.6); Glomerular Filtration Rate 122.8 mL/min (90-130); Glucose 113 mg/dL (65-115); Osmolality Calculated 281 mOsm/kg (285-295); Potassium 3.6 mmol/L (3.5-5.1); Sodium 136 mmol/L (136-145); Total Bilirubin 0.2 mg/dL (0.15-1.2); Total Protein 6.5 g/dL (6.6-8.7)
[2021-08-28 15:00] VITALS: BP 121/84; O2SAT 95
[2021-08-28 15:34] VITALS: BP 121/84; PULSE 76; O2SAT 95
[2021-08-28] MEDS: levETIRAcetam 500 mg Tablet PO (15:34)
[2021-08-28 16:03] LABS: Creatine Phosphokinase 68 U/L (26-192)
[2021-08-31 13:28] LABS: Levetiracetam Keppra 23.3 mcg/mL
== END 2021-08-28 15:37 | disposition home or self-care (01) ==
PROVIDERS: Emergency Provider Emergency Medicine; PCP Registered Nurse
DX: R56.9 Unspecified convulsions (principal); F17.210 Nicotine dependence, cigarettes, uncomplicated
CPT/HCPCS: 36415; 80053; 80177; 81001; 81025; 82550; 85025; 99283

== ENCOUNTER → 2021-09-09 08:45 | Outpatient (BNVA) | payer SELFPAY | PROVIDERS: PCP Registered Nurse; Visit Provider Registered Nurse | DX: G40.909 Epilepsy, unspecified, not intractable, without status epilepticus (principal) | CPT/HCPCS: 80177 ==

== ENCOUNTER → 2022-01-21 08:54 | Outpatient (BNVA) | payer SELFPAY | PROVIDERS: PCP Registered Nurse; Visit Provider Registered Nurse | DX: E11.9 Type 2 diabetes mellitus without complications (principal); G40.909 Epilepsy, unspecified, not intractable, without status epilepticus; Z71.3 Dietary counseling and surveillance; R46.89 Other symptoms and signs involving appearance and behavior | CPT/HCPCS: 80053; 83036 ==

== ENCOUNTER → 2022-09-25 09:47 | Outpatient (BNVA) | payer MEDICAID, SELFPAY | PROVIDERS: PCP Registered Nurse; Visit Provider Registered Nurse | DX: Z34.90 Encounter for supervision of normal pregnancy, unspecified, unspecified trimester (principal) | CPT/HCPCS: 81025 ==

== ENCOUNTER → 2022-10-08 09:46 | Outpatient (BNVA) | payer MEDICAID, SELFPAY | PROVIDERS: PCP Registered Nurse; Visit Provider Obstetrics & Gynecology | DX: Z34.90 Encounter for supervision of normal pregnancy, unspecified, unspecified trimester (principal) | CPT/HCPCS: 80307; 81000; 82950; 83036; 87086 ==

== ENCOUNTER → 2022-10-09 08:00 | Outpatient (BNVA) | payer MEDICAID, SELFPAY | PROVIDERS: PCP Registered Nurse; Visit Provider Obstetrics & Gynecology | DX: Z34.90 Encounter for supervision of normal pregnancy, unspecified, unspecified trimester (principal) | CPT/HCPCS: 84702 ==

== ENCOUNTER → 2022-10-31 09:27 | Outpatient (BNVA) | payer MEDICAID, SELFPAY | PROVIDERS: PCP Registered Nurse; Visit Provider Obstetrics & Gynecology | DX: Z36.87 Encounter for antenatal screening for uncertain dates (principal) | CPT/HCPCS: 76801 ==

== ENCOUNTER → 2022-11-05 11:20 | Outpatient (BNVA) | payer MEDICAID, SELFPAY | PROVIDERS: PCP Registered Nurse; Visit Provider Obstetrics & Gynecology | DX: Z34.90 Encounter for supervision of normal pregnancy, unspecified, unspecified trimester (principal) | CPT/HCPCS: 81000; 85027; 86592; 86762; 86803; 86850; 86900; 87340; 87806 ==

== ENCOUNTER → 2022-11-12 10:05 | Outpatient (BNVA) | payer MEDICAID, SELFPAY | PROVIDERS: PCP Registered Nurse; Visit Provider Obstetrics & Gynecology | DX: O09.90 Supervision of high risk pregnancy, unspecified, unspecified trimester (principal); Z3A.00 Weeks of gestation of pregnancy not specified | CPT/HCPCS: 81000 ==

== ENCOUNTER 2023-02-26 13:23 | Outpatient (CLI) | payer MEDICAID, SELFPAY ==
[2023-02-26 13:44] VITALS: BP 143/75; PULSE 101
[2023-02-26 13:54] VITALS: RESP 18
[2023-02-26 13:55] VITALS: BMI 46.5
[2023-02-26 14:05] LABS: Bilirubin Urine Neg (Negative); Blood Urine Neg (Negative); Glucose Urine UA 2+ (Normal); Ketones Urine Negative (Negative); Leukocyte Esterase Urine Negative (Negative); Nitrate Urine Negative (Negative); Protein Urine Neg (Negative); Urine Appearance SL Hazy (CLEAR); Urine Color Yellow (Yellow); Urobilinogen Urine Norm (Negative); pH Urine 7 (5-7)
[2023-02-26 14:38] VITALS: BP 137/73; PULSE 86
[2023-02-26 14:50] LABS: Bacteria Urine TRACE /hpf; RBC Urine RARE /hpf (0-2); Transitional Epi Cells Urine 0-4 /hpf; WBC Urine RARE /hpf (0-5)
[2023-02-26 14:51] LABS: Add Urine Culture? No; Amorphous Sediment Urine TRACE /hpf; Fine Granular Casts Urine RARE /lpf
[2023-02-26 14:52] VITALS: BP 146/66; PULSE 80
[2023-02-26 15:15] VITALS: BP 146/66; PULSE 80
== END 2023-02-26 15:15 | disposition home or self-care (01) ==
LOC: OPOB 13:29 → OBGYN 13:29
PROVIDERS: PCP Registered Nurse; Visit Provider Family Medicine
DX: O26.899 Other specified pregnancy related conditions, unspecified trimester (principal); Z3A.00 Weeks of gestation of pregnancy not specified; R10.9 Unspecified abdominal pain
CPT/HCPCS: 59025; 81001; 99211

== ENCOUNTER 2023-03-23 15:00 | Outpatient (CLI) | payer MEDICAID, SELFPAY ==
[2023-03-23] VITALS (11 sets, daily range): BP systolic 122–157; BP diastolic 60–86; PULSE 80–96; RESP 18; TEMP 35.8; BMI 47.2
[2023-03-23 15:44] LABS: Glucose Point of Care 193 mg/dL (70-110)
--- NOTE | 2023-03-23 16:04 | USR_ITS ---
PROCEDURE INFORMATION: Exam: US Biophysical Profile Without Non-Stress Test Exam date and time: 03/23/2023 4:54 PM Age: 27 years old Clinical indication: Other: Cramping; ; Additional info: Possible labor; High risk , cervical length TECHNIQUE: Imaging protocol: US biophysical profile without non-stress testing. COMPARISON: US OB <= 14 weeks fetus [id number] 10/31/2022 9:29 AM FINDINGS: BIOPHYSICAL PROFILE: breathing movement (BPP): 2 out of 2. body movement (BPP): 2 out of 2. tone (BPP): 2 out of 2. Amniotic fluid (BPP): 2 out of 2. Transverse lie. heart rate 136 beats per minute. ALLA of 12.49 cm. MVP 3.99 cm. Cervix measures 3.8 cm and appears closed. US/US OB BPP wo NST [id number] IMPRESSION: Biophysical profile score is 8 out of 8.
[2023-03-23] MEDS: ondansetron 2 mg/ML SDV 2 mL 4 MG IVP (16:17)
[2023-03-23 16:49] LABS: Amphetamines Screen Urine Negative (Negative); Barbiturates Screen Urine Negative (Negative); Benzodiazepines Screen Urine Negative (Negative); Cocaine Screen Urine Negative (Negative); Opiate Screen Urine Negative (Negative); PCP Screen Urine Negative (Negative); THC Screen Urine Positive (Negative)
[2023-03-23 16:55] LABS: Bilirubin Urine Neg (Negative); Blood Urine Neg (Negative); Glucose Urine UA 4+ (Normal); Ketones Urine 3+ (Negative); Nitrate Urine Negative (Negative); Protein Urine Trace (Negative); Urine Appearance Clear (CLEAR); Urine Color Yellow (Yellow); Urobilinogen Urine Norm (Negative); pH Urine 5 (5-7)
[2023-03-23 16:56] LABS: Add Urine Microscopic? YES; Bacteria Urine TRACE /hpf; Leukocyte Esterase Urine Trace (Negative); Mucus Urine 1+ /hpf; Squamous Epithelial Cell Urine 0-4 /hpf (0-5); WBC Urine 0-4 /hpf (0-5)
[2023-03-23 16:57] LABS: Add Urine Culture? No
== END 2023-03-23 18:28 | disposition home or self-care (01) ==
LOC: OPOB 15:02 → OBGYN 15:04
PROVIDERS: PCP Registered Nurse; Visit Provider Family Medicine
DX: O26.899 Other specified pregnancy related conditions, unspecified trimester (principal); Z3A.00 Weeks of gestation of pregnancy not specified; R10.9 Unspecified abdominal pain
CPT/HCPCS: 36416; 59025; 76819; 80306; 81001; 82962; 96374; 99211; J2405

== ENCOUNTER 2023-04-15 16:05 | Outpatient (CLI) | payer MEDICAID, SELFPAY ==
[2023-04-15] VITALS (11 sets, daily range): BP systolic 130–171; BP diastolic 68–97; PULSE 88–110; RESP 16–17; TEMP 36.6; BMI 49.0
[2023-04-15 17:46] LABS: Amphetamines Screen Urine Negative (Negative); Barbiturates Screen Urine Negative (Negative); Benzodiazepines Screen Urine Negative (Negative); Cocaine Screen Urine Negative (Negative); Opiate Screen Urine Negative (Negative); PCP Screen Urine Negative (Negative); THC Screen Urine Negative (Negative)
[2023-04-15 18:14] LABS: Urine Appearance Hazy (CLEAR); Urine Color Light yellow (Yellow); pH Urine 6 (5-7)
[2023-04-15 18:15] LABS: Bilirubin Urine Neg (Negative); Blood Urine Neg (Negative); Glucose Urine UA 4+ (Normal); Ketones Urine Negative (Negative); Leukocyte Esterase Urine 2+ (Negative); Nitrate Urine Negative (Negative); Protein Urine Neg (Negative); Urobilinogen Urine Norm (Negative)
[2023-04-15 18:23] LABS: Add Urine Culture? Yes; Bacteria Urine 1+ /hpf; Mucus Urine 1+ /hpf; RBC Urine 0-4 /hpf (0-2)
--- NOTE | 2023-04-15 19:03 | USR_ITS ---
PROCEDURE INFORMATION: Exam: US , Limited Exam date and time: 04/15/2023 8:12 PM Age: 27 years old Clinical indication: complicated by abdominal or pelvic pain; Generalized abdominal pain; Third trimester (=28 weeks 0 days); Gestational age or lmp: 39w 1d by u/s; ; Additional info: Diabetes, alla, placenta location, measurments LABS AND CLINICAL REPORTS: Last menstrual period start date: 08/11/2022 Gestational age (Established): 35 w 2 d Estimated due date (Established): 05/18/2023 TECHNIQUE: Imaging protocol: Real-time ultrasound of the maternal uterus with image documentation. Exam focused on the clinical indication. COMPARISON: US OB BPP wo NST [id number] 03/23/2023 4:54 PM FINDINGS: Gestation: Single live intrauterine gestation. heart rate: 136 bpm presentation: Breech Placenta: Posterior and Fundal. Grade 1 placenta without previa. Amniotic fluid: Amniotic fluid volume is at the upper limits of normal/mild polyhydramnios. Amniotic fluid index: ALLA is 23.28 cm. BIOMETRY: Gestational age (AUA): 39 w 1 d Estimated due date (AUA): 04/21/2023 Estimated weight: 3710 g Biparietal diameter (BPD): 9.46 cm. EGA (BPD) is 38 w 4 d Head circumference (HC): 34.63 cm. EGA (HC) is 40 w 1 d Abdominal circumference (AC): 35.75 cm. EGA (AC) is 39 w 5 d Femur length (FL): 7.39 cm. EGA (FL) is 37 w 6 d FL/HC: 21.3 % FL/BPD: 78.1 % FL/AC: 20.7 % MATERNAL: Cervix: Cervical length measures 4.43 cm. US/US OB lmt w/ BPP wo NST IMPRESSION: 1. Single live intrauterine gestation as described above with an estimated gestational age of 39 weeks 1 day and an estimated due date of 04/21/2023. 2. Breech presentation. 3. ALLA 23.3 cm is at the upper limits of normal / mild polyhydramnios.
--- NOTE | 2023-04-15 19:16 | PM.OBTRLD ---
OB L&D Triage Visit Information: Date of evaluation: 04/15/23 Comments/Additional reason(s) for visit: 27-year-old 1 at 35 weeks estimated gestational age based on an 11-week ultrasound. She presented to the hospital because she is swelling in her feet legs face and belly. She is not complaining of a headache. She denies any visual changes. She has not been evaluated since she was seen earlier this month on OB triage at that time as well. Apparently she received care the first part of her by Dr. Piedra. He is under 2 pain otology in [place]. She states that they told her that she did not need to go there anymore and that she came back here but was not allowed to see the obstetricians again because they did not have records from [place]. She states that no one else has been went to except her because she is further along in her . She states that she has not been checking her blood sugars because she forgets. She also states that she drinks sodas but she is trying to do better. She has also been forgetting to take her metformin. She states that she has a seizure disorder but that it has not been a problem during her . Evaluation: monitor accelerations: Present 15x15 Laboratory results: Laboratory Tests 04/15/23 04/15/23 17:30 17:44 Urine Color Light yellow Urine Appearance Hazy A Urine pH 6 Ur Specific Gravit y 1.020 Urine Protein Neg Urine Glucose (UA) 4+ H Urine Ketones Negative Urine Blood Neg Urine Nitrate Negative Urine Bilirubin Neg Urine Urobilinogen Norm Ur Leukocyte Christel ase 2+ H Urine RBC 0-4 H Urine WBC 5-10 H Ur Squamous Epith Cells 5-10 H Amorphous Sediment Not Reportable Urine Bacteria 1+ H Urine Mucus 1+ Urine Yeast 1+ H Urine Opiates Scre en Negative Ur Barbiturates Sc reen Negative Ur Phencyclidine S crn Negative Ur Amphetamines Sc reen Negative U Benzodiazepines Scrn Negative Urine Cocaine Scre en Negative U Marijuana (THC) Screen Negative Vital signs: Vital Signs - 24 hr 04/15/23 16:31 04/15/23 16:46 04/15/23 17:00 Pulse Rate 96 88 Respiratory Rate 17 Blood Pressure 137/83 130/76 Oxygen Delivery Me thod 04/15/23 17:00 04/15/23 17:01 04/15/23 17:17 Pulse Rate 97 93 Respiratory Rate 17 Blood Pressure 136/77 140/68 Oxygen Delivery Me thod Room Air 04/15/23 17:46 04/15/23 18:01 04/15/23 18:16 Pulse Rate 92 89 97 Respiratory Rate Blood Pressure 141/79 145/75 140/90 Oxygen Delivery Me thod Care ANDI Calculator Estimated Delivery Date Method Current WG Current Estimate 05/13/23 LMP (Certain) 36w 0d Other Estimates 05/18/23 Ultrasound #1 35w 2d Final Diagnosis Final Diagnosis (1) Diabetes mellitus: Plan: We discussed her her high risk of complications due to her type 2 diabetes. I discussed the importance for having consistent evaluation to avoid complications such as stillbirth. I discussed the importance having well-controlled diabetes so she does not end up with a shoulder dystocia. At this point she is unlikely to build to obtain care consistently from any provider. We checked a group B strep status. Will obtain results from ultrasound and a biophysical profile. Hemoglobin A1c has been ordered. I have set her up for biweekly NSTs. After the nurses contact me with the information that we need, we will consider how we can get her the care she needs to reduce her risk of complications. Status: Acute Qualifiers: Diabetes mellitus type: type 2 Diabetes mellitus terminal clerk insulin use: without longterm use Diabetes mellitus complication status: without complication Qualified Code(s): E11.9 - Type 2 diabetes mellitus without complications Code(s): E11.9 - Type 2 diabetes mellitus without complications (2) Morbid obesity with BMI of 45.0-49.9, adult: Status: Acute Code(s): E66.01 - Morbid (severe) obesity due to excess calories; Z68.42 - Body mass index [BMI] 45.0-49.9, adult (3) Lower extremity edema: Status: Acute Code(s): R60.0 - Localized edema Coding Level of Care Code Acute Code for Chg Fwd Diagnoses Type 2 diabetes mellitus without complication, without long-term current use of insulin E11.9 Diabetes mellitus type: type 2 Diabetes mellitus longterm insulin use: without terminal clerk use Diabetes mellitus complication status: without complication Morbid obesity with BMI of 45.0-49.9, adult E66.01; Z68.42 Lower extremity edema R60.0
[2023-04-15 20:14] LABS: Estmated Average Glucose 194; Hemoglobin A1C 8.4 % (4.0-6.0)
== END 2023-04-15 20:51 | disposition home or self-care (01) ==
LOC: OPOB 16:12 → OBGYN 16:13
PROVIDERS: PCP Registered Nurse; Visit Provider Family Medicine
DX: O24.419 Gestational diabetes mellitus in pregnancy, unspecified control (principal); Z3A.35 35 weeks gestation of pregnancy; O99.213 Obesity complicating pregnancy, third trimester; O12.03 Gestational edema, third trimester; Z91.199 Patient's noncompliance with other medical treatment and regimen due to unspecified reason
CPT/HCPCS: 36415; 59025; 76815; 76819; 80306; 81001; 83036; 87081; 87086; 99211

== ENCOUNTER → 2023-11-19 10:11 | Outpatient (BNVA) | payer MEDICAID, SELFPAY | PROVIDERS: PCP Registered Nurse; Visit Provider Registered Nurse | DX: E11.9 Type 2 diabetes mellitus without complications (principal); L02.92 Furuncle, unspecified; Z91.199 Patient's noncompliance with other medical treatment and regimen due to unspecified reason; Z71.3 Dietary counseling and surveillance; F17.210 Nicotine dependence, cigarettes, uncomplicated | CPT/HCPCS: 80053; 83036; 85025 ==

== ENCOUNTER → 2024-02-16 11:07 | Outpatient (BNVA) | payer MEDICAID, SELFPAY | PROVIDERS: PCP Registered Nurse; Visit Provider Registered Nurse | DX: E11.9 Type 2 diabetes mellitus without complications (principal) | CPT/HCPCS: 83036 ==

== ENCOUNTER → 2024-06-28 11:43 | Outpatient (BNVA) | payer MEDICARE, SELFPAY | PROVIDERS: PCP Registered Nurse; Visit Provider Registered Nurse | DX: Z11.4 Encounter for screening for human immunodeficiency virus [HIV] (principal); E11.9 Type 2 diabetes mellitus without complications; Z78.9 Other specified health status | CPT/HCPCS: 80053; 80061; 81000; 83036; 85025; 87491; 87591; 87661; 87806 ==

== ENCOUNTER → 2024-11-01 11:59 | Outpatient (BNVA) | payer MEDICARE, MEDICAID, SELFPAY | PROVIDERS: PCP Registered Nurse; Visit Provider Registered Nurse | DX: E11.9 Type 2 diabetes mellitus without complications (principal) | CPT/HCPCS: 80053; 80061; 83036 ==

== ENCOUNTER → 2024-12-13 13:31 | Outpatient (BNVA) | payer MEDICARE, SELFPAY | PROVIDERS: PCP Registered Nurse; Visit Provider Registered Nurse | DX: N39.0 Urinary tract infection, site not specified (principal) | CPT/HCPCS: 81000; 87086 ==

== ENCOUNTER → 2025-01-24 10:42 | Outpatient (BNVA) | payer MEDICARE, SELFPAY | PROVIDERS: PCP Registered Nurse; Visit Provider Registered Nurse | DX: B37.9 Candidiasis, unspecified (principal); N39.0 Urinary tract infection, site not specified | CPT/HCPCS: 81000; 87070; 87086; 87205 ==

== ENCOUNTER → 2025-02-21 11:07 | Outpatient (BNVA) | payer MEDICARE, SELFPAY | PROVIDERS: PCP Registered Nurse; Visit Provider Registered Nurse | DX: Z20.2 Contact with and (suspected) exposure to infections with a predominantly sexual mode of transmission (principal); E11.9 Type 2 diabetes mellitus without complications; N89.8 Other specified noninflammatory disorders of vagina; Z01.419 Encounter for gynecological examination (general) (routine) without abnormal findings | CPT/HCPCS: 80061; 82607; 83036; 85025; 87070; 87205; 87491; 87591; 87661; 88175 ==